=== PATIENT | male | born 1995 | race Hispanic/Latino ===

== ENCOUNTER 2023-08-09 18:21 | Emergency (ER) | payer SELFPAY ==
[2023-08-09] MEDS ORDERED: Lidocaine 1% PF 5 ML VIAL ONE (18:36)
== END 2023-08-09 19:07 | disposition home or self-care (01) ==
LOC: ERS 18:21
DX: S61.213A Laceration without foreign body of left middle finger without damage to nail, initial encounter (principal); F17.210 Nicotine dependence, cigarettes, uncomplicated; W26.8XXA Contact with other sharp object(s), not elsewhere classified, initial encounter
CPT/HCPCS: 12001; 99282